=== PATIENT | male | born 2000 | race Caucasian/White ===

== ENCOUNTER 2021-01-06 09:04 | Emergency (ER) | payer BC, OTHER ==
--- NOTE | 2021-01-06 09:43 | EDM.PDOC ---
ED HPI GENERAL MEDICAL PROBLEM - General Chief Complaint: Syncope Stated Complaint: FAINTED AND HIT HEAD Time Seen by Provider: 01/06/21 09:32 Source of Information: Reports: Patient, Family History Limitations: Reports: No Limitations - History of Present Illness INITIAL COMMENTS - FREE TEXT/NARRATIVE: The patient presents because of a syncopal episode. The patient was at the fire department for a CPR class. He was seated and he became lightheaded and then passed out. He did hit his head on the carpet. He has an abrasion to his forehead and his nose. He was out for a brief time. He had no seizure activity. He has no headache now or neck pain. This has happened before with needle sticks. He will get a vasovagal response. He also says he has not eaten since 6pm last night. He is doing a diet with calorie restrictions of 1,500 to 2,000 calories and he is working out. He has no fever, chills, cough, chest pain, shortness of breath, abdominal pain, nausea or vomiting. Onset: Sudden Duration: Minutes: Location: Reports: Face Quality: Reports: Ache Severity: Mild Improves with: Reports: None Worsens with: Reports: None Associated Symptoms: Reports: No Other Symptoms - Related Data Allergies Allergy/AdvReac Type Severity Reaction Status Date / Time No Known Allergies Allergy Verified 01/06/21 09:19 Home Meds: Home Meds . [No Known Home Meds] 01/06/21 [History] Past Medical History - Past Surgical History Male Surgical History: Reports: Circumcision Social & Family History - Tobacco Use Tobacco Use Status *Q: Never Tobacco User Second Hand Smoke Exposure: No - Recreational Drug Use Recreational Drug Use: No ED ROS GENERAL - Review of Systems Review Of Systems: See Below Constitutional: Reports: No Symptoms HEENT: Reports: Other (abrasions to his face) Respiratory: Reports: No Symptoms Cardiovascular: Reports: No Symptoms Endocrine: Reports: No Symptoms GI/Abdominal: Reports: No Symptoms : Reports: No Symptoms Musculoskeletal: Reports: No Symptoms - Physical Exam Exam: See Below Exam Limited By: No Limitations General Appearance: Alert, No Apparent Distress Ears: Normal External Exam Nose: Other (abrasion to the nose with no edema or instability) Head Exam: Normocephalic, Other (abrasions to the forehead) Neck: Normal Inspection Respiratory/Chest: No Respiratory Distress, Lungs Clear, Normal Breath Sounds Cardiovascular: Regular Rate, Rhythm, No Edema, No Murmur GI/Abdominal: Soft, Non-Tender, No Organomegaly, No Mass Neuro Exam (Abbreviated): Alert, Oriented, No Motor/Sensory Deficits #1 Interpretation EKG Date: 01/06/21 Time: 09:39 Rhythm: NSR Rate (Beats/Min): 67 [place]: Normal P-Wave: Present QRS: Normal ST-T: Normal QT: Normal Course - Vital Signs Last Recorded V/S: Last Vital Signs Temp 97.6 F 01/06/21 09:13 Pulse 76 01/06/21 09:13 Resp 12 01/06/21 09:13 BP 124/76 01/06/21 09:13 Pulse Ox 100 01/06/21 09:13 - Orders/Labs/Meds Orders: Active Orders 24 hr Category Date Time Status Accu Check [Blood Glucose Check, Bedside] [RC] ONETIME Care 01/06/21 09:38 Active EKG Documentation Completion [RC] ASDIRECTED Care 01/06/21 09:38 Active EKG 12 Lead [EK] Stat Ther 01/06/21 09:38 Ordered Labs: Laboratory Tests 01/06/21 Range/Units 09:40 POC Glucose 112 H (70-99) mg/dL - Re-Assessments/Exams Free Text/Narrative Re-Assessment/Exam: 01/06/21 09:44 His EKG shows a NSR with no acute changes. His blood sugar is 112. 01/06/21 10:42 He had some breakfast and he is doing good. I feel this was due to the calorie restrictions. I will discharge him home. Departure - Departure Time of Disposition: 10:45 Disposition: Home, Self-Care 01 Condition: Good Clinical Impression: Syncope Qualifiers: Syncope type: unspecified Qualified Code(s): R55 - Syncope and collapse - Discharge Information *PRESCRIPTION DRUG MONITORING PROGRAM REVIEWED*: Not Applicable *COPY OF PRESCRIPTION DRUG MONITORING REPORT IN PATIENT [facility]: Not Applicable Referrals: PCP,None [Primary Care Provider] - Forms: ED Department Discharge Additional Instructions: Drink plenty of fluids. Take a protein shake or something else for breakfast before starting your day. Follow up with your provider. Pleas return if you are worse. Sepsis Event Note (ED) - Evaluation Sepsis Screening Result: No Definite Risk - Focused Exam Vital Signs: Vital Signs Temp Pulse Resp BP Pulse Ox 01/06/21 09:13 97.6 F 76 12 124/76 100 - My Orders Last 24 Hours: My Active Orders 01/06/21 09:38 Accu Check [Blood Glucose Check, Bedside] [RC] ONETIME EKG Documentation Completion [RC] ASDIRECTED EKG 12 Lead [EK] Stat - Assessment/Plan Last 24 Hours: My Active Orders 01/06/21 09:38 Accu Check [Blood Glucose Check, Bedside] [RC] ONETIME EKG Documentation Completion [RC] ASDIRECTED EKG 12 Lead [EK] Stat
== END 2021-01-06 10:51 | disposition home or self-care (01) ==
LOC: JD.ED 09:04
DX: R55 Syncope and collapse (principal); S00.31XA Abrasion of nose, initial encounter; S00.81XA Abrasion of other part of head, initial encounter; W22.8XXA Striking against or struck by other objects, initial encounter
CPT/HCPCS: 82947; 93005; 93010; 99283; 99284-25

== ENCOUNTER 2023-01-22 19:07 | Emergency (ER) | payer OTHER ==
[2023-01-22] MEDS ORDERED: Ibuprofen 800 MG Tab PO ONE (19:25)
== END 2023-01-22 21:19 | disposition home or self-care (01) ==
LOC: JD.ED 19:07
DX: S83.92XA Sprain of unspecified site of left knee, initial encounter (principal); X50.1XXA Overexertion from prolonged static or awkward postures, initial encounter; Y93.64 Activity, baseball
CPT/HCPCS: 73562; 99283; A9270